=== PATIENT | male | born 1965 | race Hispanic/Latino ===

== ENCOUNTER 2017-11-26 12:58 | Emergency (ER) | payer SELFPAY ==
[2017-11-26 14:32] LABS: BASOPHILS % (AUTO) 0.9 % (0.0-5.0); EOSINOPHILS % (AUTO) 2.4 % (0.0-8.0); HEMATOCRIT 42.1 % (42-54); MEAN CORPUSCULAR HEMOGLOBIN 30.6 pg (27.0-33.0); MEAN CORPUSCULAR HGB CONC 34.4 g/dL (32.0-36.0); MEAN CORPUSCULAR VOLUME 88.9 fL (79-99); MONOCYTES % (AUTO) 6.6 % (3.0-13.0); NEUTROPHILS % (AUTO) 62.1 % (40.0-77.0); PLATELET COUNT (AUTO) 249 K/uL (130-400); RED BLOOD CELL COUNT(AUTO) 4.73 MIL/uL (4.50-6.20); RED CELL DISTRIBUTION WIDTH 14.7 % (11.0-15.5); WHITE BLOOD COUNT (AUTO) 9.7 K/uL (4.8-10.8)
[2017-11-26 14:40] LABS: CREATININE 1.1 mg/dL (0.5-1.5)
[2017-11-26 14:41] LABS: APPEARANCE,URINE Clear (CLEAR); BILIRUBIN,URINE Negative (NEGATIVE); COLOR,URINE Dark Yellow (YELLOW); GLUCOSE, URINE (UA) Negative (NEGATIVE); KETONES,URINE Negative (NEGATIVE); LEUKOCYTE ESTERASE ,URINE Negative (NEGATIVE); NITRATE,URINE Negative (NEGATIVE); OCCULT BLOOD,URINE Negative (NEGATIVE); PROTEIN,URINE Negative (NEGATIVE)
[2017-11-26 14:43] LABS: AMPHET/METH SCREEN,URINE NEGATIVE (NEGATIVE); BARBITURATE SCREEN, URINE NEGATIVE (NEGATIVE); BENZODIAZEPINES SCREEN,URINE NEGATIVE (NEGATIVE); CANNABINOID SCREEN,URINE POSITIVE (NEGATIVE); COCAINE SCREEN,URINE POSITIVE (NEGATIVE); OPIATE SCREEN,URINE POSITIVE (NEGATIVE); PHENCYCLIDINE SCREEN,URINE NEGATIVE (NEGATIVE)
[2017-11-26 14:45] LABS: ALBUMIN 3.9 g/dL (3.5-5.0); BILIRUBIN,TOTAL 0.5 mg/dL (0.2-1.0); TOTAL PROTEIN, SERUM 7.5 g/dL (6.0-8.3)
[2017-11-26] MEDS ORDERED: KETOROLAC TROMETHAMINE 30MG/ML ONE (15:02)
== END 2017-11-26 15:22 | disposition home or self-care (01) ==
LOC: EDH 12:58
DX: R10.12 Left upper quadrant pain (principal); F19.10 Other psychoactive substance abuse, uncomplicated; Z72.0 Tobacco use
CPT/HCPCS: 36415; 74176; 80053; 80305; 81003; 85025; 96374; 99285; J1885

== ENCOUNTER 2021-11-12 18:24 | Inpatient (IN) | payer OTHER ==
[~2021-11-12] VITALS: Ht 182.9 cm; Wt 76.2 kg
[2021-11-12 21:46] LABS: BASOPHILS % (AUTO) 0.4 % (0.0-5.0); HEMATOCRIT 35.4 % (42-54); LYMPHOCYTES % (AUTO) 16.3 % (21.0-51.0); MEAN CORPUSCULAR HEMOGLOBIN 29.6 pg (27.0-33.0); MEAN CORPUSCULAR HGB CONC 32.5 g/dL (32.0-36.0); MONOCYTES % (AUTO) 7.7 % (3.0-13.0); NEUTROPHILS % (AUTO) 71.5 % (40.0-77.0); PLATELET COUNT (AUTO) 654 K/uL (130-400); RED BLOOD CELL COUNT(AUTO) 3.89 MIL/uL (4.50-6.20); RED CELL DISTRIBUTION WIDTH 13.3 % (11.0-15.5); WHITE BLOOD COUNT (AUTO) 9.3 K/uL (4.8-10.8)
[2021-11-12 21:51] LABS: CREATININE 1.3 mg/dL (0.5-1.5)
[2021-11-12 21:55] LABS: ALBUMIN 2.7 g/dL (3.5-5.0); BILIRUBIN,TOTAL 0.4 mg/dL (0.2-1.0); TOTAL PROTEIN, SERUM 8.6 g/dL (6.0-8.3)
[2021-11-12] MEDS ORDERED: ONDANSETRON 4MG INJ ONE (21:57)
[2021-11-12] MEDS ORDERED: MORPHINE 4 MG SYG ONE (21:57)
[2021-11-12] MEDS ORDERED: ONDANSETRON 4MG INJ IVP ONE (22:00)
[2021-11-12] MEDS ORDERED: 0.9%NACL 1000ML 1,000 ML IV ONE (22:00)
[2021-11-12] MEDS ORDERED: MORPHINE 4 MG SYG IVP ONE (22:00)
[2021-11-12 22:07] LABS: CRP QUANTITATIVE 215.4 mg/L (0.00-9.0)
[2021-11-12 22:52] LABS: ERYTHROCYTE SEDIMENTATION RATE 123 MM/HR (0-20)
[2021-11-13 00:30] LABS: APPEARANCE BODY FLUID SLIGHTLY CLOUDY (CLEAR); COLOR,BODY FLUID LT YELLOW (LT YELLOW); SPECIMENTYPE,BODY FLUID SYNOVIAL; TOTAL VOLUME,BODY FLUID 15 mL
[2021-11-13 00:32] LABS: BODY FLUID WBC 28987 /cu. mm.
[2021-11-13 00:33] LABS: BODY FLUID RBC 4277 /cu. mm.
[2021-11-13 00:34] LABS: BF BASOPHIL 0 %; BF EOSINOPHIL 0 %; BF LYMPHOCYTE 0 %; BF MONOCYTE 6 %
[2021-11-13] MEDS ORDERED: VANCOMYCIN 500MG+NS 100ML 100 ML IV ONE (01:15)
[2021-11-13] MEDS ORDERED: VANCOMYCIN 1G/250ML KIT 250 ML IV ONE (01:16)
[2021-11-13] MEDS ORDERED: ONDANSETRON 4MG INJ IV PRN (01:30)
[2021-11-13] MEDS ORDERED: VANCOMYCIN 1G VIAL IVPB ONE (01:30)
[2021-11-13] MEDS ORDERED: HYDRALAZINE 20MG/ML VIAL IV PRN (01:30)
[2021-11-13] MEDS ORDERED: DIPHENHYDRAMINE HCL 25 MG CAPSULE PO PRN (01:30)
[2021-11-13] MEDS ORDERED: CEFTRIAXONE 2GM VIAL IVP ONE (01:30)
[2021-11-13] MEDS ORDERED: ACETAMINOPHEN 325 MG TAB PO PRN (01:30)
[2021-11-13] MEDS ORDERED: DiphenhydrAMINE HCL 50 MG/ML VIAL ONE (01:48)
[2021-11-13] MEDS ORDERED: DiphenhydrAMINE HCL 50 MG/ML VIAL IV ONE (02:30)
[2021-11-13] MEDS: FAMOTIDINE 20MG VIAL IV SCH ×4 (02:31→21:27)
[2021-11-13] MEDS: FAMOTIDINE 20MG VIAL IV ONE ×2 (02:33→02:35)
[2021-11-13 02:54] LABS: CRYSTALS, SYNOVIAL FLUID None Seen
[2021-11-13] MEDS ORDERED: PHARMACY COMMUNICATION MISC SCH ×3 (03:00→08:30)
[2021-11-13 03:50] VITALS: BP 136/84
[2021-11-13] MEDS ORDERED: 0.9% NACL 250ML 250 ML ONE (03:56)
[2021-11-13] MEDS: ACETAMINOPHEN WITH CODEINE 1 TAB TAB PO PRN ×4 (04:32→20:15)
[2021-11-13] MEDS: PHARMACY COMMUNICATION MISC SCH ×3 (06:00→18:00)
[2021-11-13 06:17] LABS: BASOPHILS % (AUTO) 0.6 % (0.0-5.0); EOSINOPHILS % (AUTO) 4.4 % (0.0-8.0); HEMATOCRIT 31.4 % (42-54); LYMPHOCYTES % (AUTO) 21.9 % (21.0-51.0); MEAN CORPUSCULAR HEMOGLOBIN 29.4 pg (27.0-33.0); MEAN CORPUSCULAR HGB CONC 32.5 g/dL (32.0-36.0); MEAN CORPUSCULAR VOLUME 90.5 fL (79-99); MONOCYTES % (AUTO) 7.6 % (3.0-13.0); NEUTROPHILS % (AUTO) 64.4 % (40.0-77.0); PLATELET COUNT (AUTO) 535 K/uL (130-400); RED BLOOD CELL COUNT(AUTO) 3.47 MIL/uL (4.50-6.20); RED CELL DISTRIBUTION WIDTH 13.4 % (11.0-15.5); WHITE BLOOD COUNT (AUTO) 8.6 K/uL (4.8-10.8)
[2021-11-13 06:26] LABS: POTASSIUM 3.7 mmol/L (3.5-5.1); URIC ACID 3.9 mg/dL (2.6-7.2)
[2021-11-13 06:31] LABS: INR 1.05 (0.85-1.15); PROTHROMBIN TIME 11.4 SEC (9.6-11.6)
[2021-11-13 06:33] LABS: PARTIAL THROMBOPLASTIN TIME 33.6 SEC (26.3-35.5)
[2021-11-13 08:00] VITALS: BP 132/75
[2021-11-13] MEDS ORDERED: GADOTERATE MEGLUMINE 10 MMOL/20 ML VIAL IV ONE (08:06)
[2021-11-13] MEDS: 0.9%NACL 1000ML 1,000 ML IV SCH (08:28)
[2021-11-13 12:00] VITALS: BP 128/77
[2021-11-13] MEDS: ZOSYN 3.375GM +NS 50ML IV SCH ×2 (14:07→21:27)
[2021-11-13 16:00] VITALS: BP 138/86
[2021-11-13 17:43] LABS: AMPHET/METH SCREEN,URINE POSITIVE (NEGATIVE); BARBITURATE SCREEN, URINE NEGATIVE (NEGATIVE); BENZODIAZEPINES SCREEN,URINE NEGATIVE (NEGATIVE); CANNABINOID SCREEN,URINE POSITIVE (NEGATIVE); COCAINE SCREEN,URINE POSITIVE (NEGATIVE); OPIATE SCREEN,URINE POSITIVE (NEGATIVE); PHENCYCLIDINE SCREEN,URINE NEGATIVE (NEGATIVE)
[2021-11-13 20:00] VITALS: BP 124/77
[2021-11-13] MEDS ORDERED: MORPHINE 2 MG SYG IVP ONE (23:00)
[2021-11-14] VITALS (22 sets, daily range): BP systolic 132–168; BP diastolic 80–102
[2021-11-14] MEDS: 0.9%NACL 1000ML 1,000 ML IV SCH ×3 (04:10→17:30)
[2021-11-14] MEDS: FAMOTIDINE 20MG VIAL IV SCH ×2 (08:14→20:06)
[2021-11-14] MEDS: ACETAMINOPHEN WITH CODEINE 1 TAB TAB PO PRN ×3 (10:46→23:30)
[2021-11-14] MEDS: ZOSYN 3.375GM +NS 50ML IV SCH ×2 (12:50→20:07)
[2021-11-14] MEDS ORDERED: HYDROMORPHONE 1 MG INJ ONE (13:59)
[2021-11-14] MEDS ORDERED: PROPOFOL 10 MG/ML 20ML VIAL IV ONE (14:01)
[2021-11-14] MEDS ORDERED: MIDAZOLAM HCL 1 MG/ML 2ML VIAL ONE (14:01)
[2021-11-14] MEDS ORDERED: LIDOCAINE PF 100MG/5ML (2%) SYRINGE 5ML ONE (14:01)
[2021-11-14] MEDS ORDERED: FENTANYL CITRATE PF 50 MCG/1 ML 5ML AMP IV ONE (14:02)
[2021-11-14] MEDS ORDERED: FAMOTIDINE 20MG VIAL IV ONE (14:55)
[2021-11-14] MEDS ORDERED: BUPIVACAINE/EPI/PF 0.5% 30ML VIAL IJ ONE (15:07)
[2021-11-14] MEDS ORDERED: ONDANSETRON 4MG INJ ONE (15:15)
[2021-11-14] MEDS ORDERED: FENTANYL CITRATE PF 50 MCG/1 ML 2ML VIAL ONE (15:51)
[2021-11-14] MEDS ORDERED: 0.9% NACL 250ML 250 ML ONE (17:48)
[2021-11-14] MEDS: DOXYCYCLINE 100MG+NS 250ML IV SCH (17:51)
[2021-11-14] MEDS: PHARMACY COMMUNICATION MISC SCH (19:58)
[2021-11-14] MEDS ORDERED: MORPHINE 4 MG SYG ONE (20:01)
[2021-11-14] MEDS: MORPHINE 4 MG SYG IVP PRN (20:07)
[2021-11-15] MEDS: MORPHINE 4 MG SYG IVP PRN ×3 (00:05→08:11)
[2021-11-15 00:12] VITALS: BP 142/81
[2021-11-15] MEDS: DOXYCYCLINE 100MG+NS 250ML IV SCH ×2 (03:50→14:00)
[2021-11-15 05:11] VITALS: BP 141/86
[2021-11-15] MEDS: ACETAMINOPHEN WITH CODEINE 1 TAB TAB PO PRN ×2 (05:16→13:41)
[2021-11-15 05:18] LABS: RETICULOCYTE % (AUTO) 1.18 % (0.42-2.23)
[2021-11-15 05:47] LABS: % IRON SATURATION 10.2 % (30-44)
[2021-11-15] MEDS: ZOSYN 3.375GM +NS 50ML IV SCH ×2 (05:48→13:41)
[2021-11-15] MEDS: 0.9%NACL 1000ML 1,000 ML IV SCH (06:50)
[2021-11-15 08:08] VITALS: BP 137/90
[2021-11-15] MEDS: FAMOTIDINE 20MG VIAL IV SCH (09:30)
== END 2021-11-15 14:42 | disposition home or self-care (01) | DRG 485 ==
LOC: EDH 18:24 → EDHIP 18:25 → 4AH 11-13 04:31 → 4DH 11-15 09:51
PROVIDERS: ADMIT Internal Medicine; ATTEND Internal Medicine
PROC: 0SBD4ZZ Excision of Left Knee Joint, Percutaneous Endoscopic Approach (ICD-10-PCS; principal; 2021-11-14 13:00)
DX: M00.9 Pyogenic arthritis, unspecified (principal); E43 Unspecified severe protein-calorie malnutrition; M25.462 Effusion, left knee; S83.232A Complex tear of medial meniscus, current injury, left knee, initial encounter; M66.0 Rupture of popliteal cyst; Z20.822 Contact with and (suspected) exposure to COVID-19; Z68.22 Body mass index [BMI] 22.0-22.9, adult; X58.XXXA Exposure to other specified factors, initial encounter; Y93.89 Activity, other specified; Y92.89 Other specified places as the place of occurrence of the external cause; Y99.8 Other external cause status
CPT/HCPCS: 36415; 73564; 73590; 73610; 73721; 80048; 80053; 80305; 82607; 82728; 82746; 83540; 83550; 83605; 84145; 84550; 85025; 85045; 85610; 85651; 85730; 86140; 87040; 87071; 87205; 87486; 87635; 87797; 89051; 89060; 93926; 93970; G0378; J0696; J1170; J1200; J2001; J2250; J2270; J2405; J2543; J2704; J3010; J3370; J3490; J7030; J7050